=== PATIENT | female | born 1955 | race Two or more races ===

== ENCOUNTER 2018-01-21 15:39 | Emergency (ER) | payer BC ==
[2018-01-21] MEDS ORDERED: ASPIRIN 81 MG CHEWABLE TAB PO ONE (16:08)
[2018-01-21] MEDS ORDERED: NS 500 ML IV ONE (16:08)
[2018-01-21 16:23] LABS: PLATELET COUNT 224 10^3/uL (150-400)
--- NOTE | 2018-01-21 16:28 | EDPHY ---
H & P Time Seen by Provider: 01/21/18 16:03 HPI/ROS: HPI Nausea, fatigue, achy. 62-year-old female by private vehicle with her . This patient reports that last night she felt fatigued and had achiness in her shoulders, upper back and neck. She reports that today she had the same symptoms but associated with nausea. She did not vomit. She also describes having an anxious feeling. She states that this is not chest pain or chest tightness but feels this across her chest. Her father had a concerning cardiac disease history. Her is present in the room with her is concerned about this as well. Cardiac risk factors other than family history includes hyperlipidemia. The patient reports that she had similar symptoms 4 times previous. Most recent episode which was not as severe last Wednesday. ROS: Constitutional: No fever, no chills. As above. Eyes: No discharge. No changes in vision. ENT: No sore throat. No nasal congestion or rhinorrhea. Respiratory: No cough. No shortness of breath. Cardiac: No chest pain, no palpitations. Gastrointestinal: No abdominal pain, no vomiting, no diarrhea. As above. Genitourinary: No hematuria. No dysuria or increased frequency with urination. Musculoskeletal: No back pain. No neck pain. No myalgias or arthralgias. Skin: No rashes. Neurological: No headache. No focal weakness or altered sensation. Past medical history: Orthopedic surgeries, hyperlipidemia. She does not take any prescription medications. Social history: Nonsmoker. Here with . Social alcohol. Physical Exam: General Appearance: Alert, no distress. This patient is responding to questions appropriately and in full sentences. This patient appears well- hydrated and well-nourished. Eyes: Pupils equal and round no pallor or injection. No lid edema, erythema or injection. Respiratory: There are no retractions, lungs are clear to auscultation with good air movement bilaterally. Cardiovascular: Regular rate and rhythm. No murmur. Gastrointestinal: Abdomen is soft and nontender, no masses, bowel sounds normal. No focal tenderness at McBurney's point. No Plasencia sign. Neurological: Motor sensory function is grossly intact. Cranial nerves are normal. Gait is normal. Skin: Warm and dry, no rashes. Musculoskeletal: Neck is supple and nontender. Extremities are symmetrical. All joints range without pain or impingement. Psychiatric: No agitation. No depression. Database: EKG: EKG time is 4:35 p.m.; EKG shows a narrow complex normal sinus rhythm with a ventricular rate of 63. The MT, QRS, QT intervals are within normal limits. There are no ST-T wave changes indicative of ischemic or injury pattern. No evidence of right heart strain. Interpreted by me. Imaging: Chest x-ray AP portable; the cardiac mediastinal silhouette is unremarkable. No evidence of infiltrate or pneumothorax. No acute cardiopulmonary disease process noted. Interpreted by me. Procedures: Emergency department course: Triage vital signs reviewed and are normal. This patient's presentation is vague in nature. Could represent a viral syndrome. However she has had this 4 times over the last several months, most recently last Wednesday. Both the patient and the however are concerned about a cardiac etiology. We will work her up for this accordingly. 5:00 p.m., patient re-evaluated. Resting comfortably at this time. 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 Vital signs are otherwise normal. She denies any chest pain, shortness of breath or other discomfort at this time. Results of her diagnostic workup discussed. I discussed the results of her weakly positive D-dimer. I explained the significance of this test. I did discuss doing a pulmonary angiogram. I discussed the reasoning for doing this but explained I felt clinically it was unlikely she had a pulmonary embolism. I discussed this with both her and her . She elects not have this test at this time. The patient competently engages in shared decision making. They demonstrate capacitance to make decisions. The patient does feel comfortable going home at this time. I will have her follow up with her primary care physician, Dr. Christel Pedro, early next week for re-evaluation. Return to emergency department precautions were thoroughly reviewed with her and her . All of their questions were answered. The patient was discharged in good condition with her . Differential Diagnosis: The differential diagnosis on this patient includes but is not limited to viral syndrome, anxiety/stress reaction. Acute coronary syndrome, myocardial infarction, pulmonary embolism, aortic dissection, myocarditis, pericarditis, pneumonia, pneumothorax unlikely. This represents a partial list of diagnoses considered. These considerations are based on history, physical exam, past history, reassessment and diagnostic testing. Smoking Status: Never smoked Constitutional: Initial Vital Signs Temperature (C) 36.7 C 01/21/18 15:45 Heart Rate 74 01/21/18 15:45 Respiratory Rate 16 01/21/18 15:45 Blood Pressure 139/92 H 01/21/18 15:45 O2 Sat (%) 95 01/21/18 15:45 O2 Delivery Mode Room Air Allergies/Adverse Reactions: codeine [Codeine] Allergy (Mild, Verified 01/21/18 15:48) NAUSEATED latex [Latex] Allergy (Mild, Verified 01/21/18 15:48) Rash oxycodone HCl [From Percocet] Allergy (Mild, Verified 01/21/18 15:48) NUASEATED Home Medications: Medication Instructions Recorded No Medications [NO HOME 12/17/11 MEDICATIONS] Amoxicillin 500 mg PO TID #30 capsule 02/10/13 Medical Decision Making - Data Points Laboratory Results: Laboratory Results 01/21/18 16:15 01/21/18 16:15 Medications Given: Discontinued Medications Aspirin (Aspirin) 324 mg PO EDNOW ONE Stop: 01/21/18 16:09 Last Admin: 01/21/18 16:21 Dose: 324 mg Sodium Chloride (Ns) 500 mls @ 1,000 mls/hr IV EDNOW ONE PRN Reason: Protocol Stop: 01/21/18 16:37 Last Admin: 01/21/18 16:21 Dose: 500 mls Point of Care Test Results: Chemistry 01/21/18 16:22 POC Troponin I 0.00 ng/mL ng/mL (0.00-0.08) Departure - Departure Disposition: Home, Routine, Self-Care Clinical Impression: Muscular aches, Nausea, Fatigue Condition: Good Instructions: Viral Syndrome (ED) Additional Instructions: Read and follow provided instructions. Follow-up with your primary care physician early next week for re-evaluation as discussed. Return to the emergency department for worsening symptoms, chest pain, shortness of breath, high fever or other serious concerns. Referrals: Christel Pedro MD [Primary Care Provider] - As per Instructions
[2018-01-21 16:35] LABS: INR 0.91 (0.83-1.16); PROTIME(PATIENT) 12.5 SEC (12.0-15.0)
--- NOTE | 2018-01-21 16:36 | CPEKG ---
Heart Rate: 63 RR Interval: 952 P-R Interval: 140 QRSD Interval: 74 QT Interval: 416 QTC Interval: 426 P [place]: 44 QRS [place]: 66 T Wave [place]: 53 EKG Severity - ABNORMAL ECG - EKG Impression: SINUS RHYTHM EKG Impression: LEFT ATRIAL ABNORMALITY EKG Impression: BORDERLINE INFERIOR Q WAVES Electronically Signed By: Eda Stephenson 21-Jan-2018 22:39:29
[2018-01-21 17:37] VITALS: BP 137/67
== END 2018-01-21 17:36 | disposition home or self-care (01) ==
DX: R11.0 Nausea (principal); R53.83 Other fatigue; M79.1 Myalgia; E86.9 Volume depletion, unspecified; Z91.040 Latex allergy status
CPT/HCPCS: 84484-PO

== ENCOUNTER → 2018-02-04 | Outpatient (CLI) | payer BC ==
[~2018-02-04] MED LIST: IOPAMIDOL (ISOVUE 370) 100 ML BTL IV ONE
== END ==
LOC: FIMAGING 16:53
PROVIDERS: ATTEND Family Medicine
DX: I25.10 Atherosclerotic heart disease of native coronary artery without angina pectoris (principal); Z85.038 Personal history of other malignant neoplasm of large intestine
CPT/HCPCS: Q9967